=== PATIENT | male | born 2000 | race Caucasian/White ===

== ENCOUNTER 2023-01-28 03:45 | Emergency (ER) | payer OTHER ==
[~2023-01-28] VITALS: Ht 177.8 cm; Wt 115.2 kg
[2023-01-28 05:16] VITALS: BP 124/85
== END 2023-01-28 05:24 | disposition home or self-care (01) ==
LOC: ER 03:45
DX: S80.01XA Contusion of right knee, initial encounter (principal); S60.212A Contusion of left wrist, initial encounter; S80.211A Abrasion, right knee, initial encounter; S66.912A Strain of unspecified muscle, fascia and tendon at wrist and hand level, left hand, initial encounter; M25.461 Effusion, right knee; V27.49XA Other motorcycle driver injured in collision with fixed or stationary object in traffic accident, initial encounter
CPT/HCPCS: 73110; 73562-RT; 90471; 90714; 90715; 99284-25; A9270

== ENCOUNTER 2024-02-28 12:00 | Emergency (ER) | payer OTHER ==
[~2024-02-28] VITALS: Ht 188 cm; Wt 122.5 kg
[2024-02-28 13:08] VITALS: BP 130/86
== END 2024-02-28 15:16 | disposition home or self-care (01) ==
LOC: ER 12:00
DX: S91.311A Laceration without foreign body, right foot, initial encounter (principal); W25.XXXA Contact with sharp glass, initial encounter
CPT/HCPCS: 12002; 73620; 99283-25

== ENCOUNTER 2024-09-14 12:18 | Emergency (ER) | payer OTHER ==
[~2024-09-14] VITALS: Ht 193 cm; Wt 127.0 kg
[2024-09-14 12:46] VITALS: BP 146/83
[2024-09-14] MEDS ORDERED: IBUP800 PO (12:50)
[2024-09-14] MEDS ORDERED: AMOX500 PO (12:50)
== END 2024-09-14 12:49 | disposition home or self-care (01) ==
LOC: ER 12:18
DX: K04.7 Periapical abscess without sinus (principal)
CPT/HCPCS: 99282